=== PATIENT | female | born 1960 | race Caucasian/White ===

== ENCOUNTER 2021-04-23 13:15 | Outpatient (CLI) | payer MEDICARE, OTHER ==
[2012-11-28 07:12] VITALS: BMI 39.5
== END 2021-04-23 23:59 | disposition home or self-care (01) ==
LOC: D.MAMMO 13:15
PROVIDERS: ATTEND Nurse Practitioner Family
DX: Z12.31 Encounter for screening mammogram for malignant neoplasm of breast (principal)